=== PATIENT | male | born 1960 | race Two or more races ===

== ENCOUNTER 2022-04-08 14:39 | Emergency (ER) | payer SELFPAY ==
[~2022-04-08] VITALS: Ht 172.7 cm; Wt 64.0 kg
[2022-04-08 16:22] LABS: HEMATOCRIT. 34.5 % (42.0-52.0); HEMOGLOBIN. 11.5 g/dL (14.0-18.0); MEAN CORPUSCULAR HEMOGLOBIN 29.2 pg (28.0-32.0); MEAN CORPUSCULAR VOLUME 87.2 fL (80.0-94.0); MEAN PLATELET VOLUME 7.3 fl (7.4-10.4); PLATELET 254 x1000/uL (130-400); RED BLOOD CELL COUNT 3.95 mill/uL (4.7-6.1); RED CELL DISTRIBUTION WIDTH 14.2 % (11.6-14.6)
[2022-04-08 16:36] LABS: CHLORIDE 98 mEq/L (98-107)
[2022-04-08 17:17] LABS: PLATELET ESTIMATE NORMAL
[2022-04-08 21:51] VITALS: BP 155/84
== END 2022-04-08 21:55 | disposition home or self-care (01) ==
LOC: ER 14:39
DX: R55 Syncope and collapse (principal); R53.1 Weakness; I12.0 Hypertensive chronic kidney disease with stage 5 chronic kidney disease or end stage renal disease; N18.6 End stage renal disease; Z99.2 Dependence on renal dialysis; Z88.0 Allergy status to penicillin
CPT/HCPCS: 36415; 71045; 80053; 84484; 85025; 93005; 99285